=== PATIENT | female | born 1985 | race Caucasian/White ===

== ENCOUNTER → 2021-08-17 | Emergency (ER) | payer OTHER ==
[~2021-08-17] VITALS: Ht 162.6 cm; Wt 70.3 kg
== END | disposition home or self-care (01) ==
LOC: ER 16:29
DX: S60.413A Abrasion of left middle finger, initial encounter (principal); X58.XXXA Exposure to other specified factors, initial encounter; Y93.89 Activity, other specified; Y92.098 Other place in other non-institutional residence as the place of occurrence of the external cause; Y99.8 Other external cause status